=== PATIENT | male | born 1975 | race African-American/Black ===

== ENCOUNTER 2018-05-22 07:14 | Emergency (ER) | payer MEDICAID, SELFPAY ==
[2018-05-22 07:19] VITALS: BP 113/59; PULSE 86; RESP 16; TEMP 37; O2SAT 97
--- NOTE | 2018-05-22 07:26 | W.ED.GENAD ---
Discharge Plan Disposition Patient Disposition: HOME Condition: Good Discharge Details Chief Complaint: RespSymp Clinical Impression: Acute bronchitis Primary Care Provider: NONE,NONE ED Provider: Estrada Valencia Home Meds and New Rx's Prescriptions: New doxycycline hyclate 100 mg capsule 100 mg PO BID 10 Days Qty: 20 RF: 0 Continue naproxen 500 MG tablet 500 mg PO BID Qty: 60 RF: 0 haloperidol lactate 50 MG/10 ML solution 100 mg IM .Q2WKS RF: 0 ziprasidone HCl [Geodon] 40 MG capsule 40 mg PO BID RF: 0 alprazolam 3 MG tablet extended release 24 hr 3 mg PO HS RF: 0 ibuprofen 800 MG tablet 800 mg PO TID PRNQty: 30 RF: 0 Discharge Instructions Instructions: Acute Bronchitis (ED) Additional Instructions: We will contact you with a follow-up appointment for your primary care office. Take antibiotics as prescribed. Continue your regularly prescribed antibiotics. Return to the emergency department for any acute concerns Continue your efforts to decrease smoking Stand Alone Forms: Work Release Medical Decision Making 42-year-old male smoker with a history of paranoid schizophrenia. He recently relocated to this area, and will require follow-up which we will ensure. He has 5 days of productive cough with sputum. He continues to smoke with cigarettes and marijuana he also reports flank pain. His vital signs are unremarkable and his exam is reassuring. Is referred for chest x-ray and urinalysis given the differential diagnosis of bronchitis, pneumonia, must rule out urinary tract infection. His diagnostic studies show unremarkable chest x-ray and unrevealing urinalysis. Do feel he is high risk for progression of what is acute bronchitis given his mental health disease and smoking. Therefore, we will place on a course of antibiotics. He is stable for outpatient management and we will ask that our ancillary staff obtain him a follow-up appointment Lab Data Laboratory Tests Range/Units 05/22/18 07:30 Urine Color (Yellow) Yellow Urine Clarity Clear Urine pH (5-8) 5.5 Ur Specific [place] (1.005-1.025) 1.020 Urine Protein (Negative) mg/dL Negative Urine Ketones (Negative) mg/dL Negative Urine Blood (Negative) Negative Urine Nitrite (Negative) Negative Urine Bilirubin (Negative) Negative Urine Urobilinogen (Up TO 0.2) EU/dL 0.2 Ur Leukocyte Esterase (Negative) Negative Urine Glucose (Negative) mg/dL Negative HPI General Mode of arrival: ambulatory. Date/Time Provider Initiated Documentation: 05/22/18 07:20. Information obtained by: patient. History of Present Illness 42 year old M presents to the emergency department with the chief complaint of Cough, described as moderate, Quality is described as aching, and is localized to the chest. Patient started experiencing this day(s) and it has been constant. No relieving factors improve symptom(s), No exacerbating factors reported . HPI Narrative: Cough: 42-year-old male presents with cough over 5 days time gradual onset. It is associated with production of green sputum. He does not endorse shortness of breath or chest pain. Will endorse flank pain. States he has been drinking cranberry juice and this is improved over 2 days time. No fever. No penile discharge or lesions. He has not been vomiting. Normal diet. He is a smoker approximately 10 cigarettes/day and marijuana Related Data Home Medications Medication Instructions Recorded Confirmed haloperidol lactate 100 mg IM .Q2WKS 12/11/12 05/22/18 alprazolam 3 mg PO HS 02/08/14 05/22/18 ziprasidone HCl [Geodon] 40 mg PO BID 02/08/14 05/22/18 ibuprofen 800 mg PO TID PRN #30 tablet 03/30/15 05/22/18 naproxen 500 mg PO BID #60 tab-cap 04/02/15 05/22/18 doxycycline hyclate 100 mg PO BID 10 Days #20 cap 05/22/18 Previous Rx's Medication Instructions Recorded ibuprofen 800 mg PO TID PRN #30 tablet 03/30/15 doxycycline hyclate 100 mg PO BID 10 Days #20 cap 05/22/18 Allergies Allergy/AdvReac Type Severity Reaction Status Date / Time No Known Allergies Allergy Unverified 05/22/18 07:30 Review of Systems Review of Systems 8 systems reviewed and otherwise negative PFSH Social History Smoking/Tobacco Use Status: Current every day Exam Narrative Exam Narrative: GEN: awake, alert, oriented 3. Pleasant, well groomed, interactive. HEAD: Normocephalic, atraumatic ENT: Mucous membranes moist, oropharynx unremarkable, External ear exam unremarkable EYES: PERRL, EOMI NECK: Full ROM, no FELICITAS, no menigismus CHEST/RESP: Nontender, clear to auscultation bilateral, no wheeze/rhonchi/rales CARDIOVASCULAR: RRR, no murmur, rub krystian. 2+ Rad pulse bilateral ABDOMEN: Soft, nontender, no mass. +Bowel sounds EXT: Full ROM, no edema, no rash Neuro: Grossly normal neurologic exam, conversant, interactive. Psych: Speech fluent, thoughts congruent, affect flat
--- NOTE | 2018-05-22 07:30 | DI.RAD_ITS ---
SYMPTOMS/DIAGNOSIS: COUGH, SMOKER PA AND LATERAL CHEST: The heart is normal in size. The lungs are clear. The mediastinal structures and pleura appear intact. CONCLUSION: Normal chest.
[2018-05-22 07:33] LABS: Bilirubin Negative (Negative); Blood Negative (Negative); Clarity Clear; Glucose Negative (Negative); Ketones Negative (Negative); Leukocyte Esterase Negative (Negative); Nitrite Negative (Negative); Urobilinogen 0.2 EU/dL (Up TO 0.2); pH 5.5 (5-8)
== END 2018-05-22 07:55 | disposition home or self-care (01) ==
PROVIDERS: Emergency Provider Emergency Medicine
DX: J20.9 Acute bronchitis, unspecified (principal); R10.31 Right lower quadrant pain; F17.210 Nicotine dependence, cigarettes, uncomplicated
CPT/HCPCS: 99283; 71046; 81003

== ENCOUNTER 2018-07-02 12:04 | Emergency (ER) | payer OTHER, SELFPAY ==
[2018-07-02 12:12] VITALS: BP 134/84; PULSE 94; RESP 18; TEMP 37.1; O2SAT 98
--- NOTE | 2018-07-02 12:35 | W.ED.GENAD ---
Discharge Plan Disposition Patient Disposition: [facility] Condition: Good Discharge Details Chief Complaint: AMS/LOC Clinical Impression: Medical non-compliance, History of schizophrenia Primary Care Provider: NONE,NONE ED Provider: Jc Bonilla Home Meds and New Rx's Prescriptions: New alprazolam 1 mg tablet 1 mg PO TID 30 Days Qty: 90 RF: 0 benztropine 1 mg tablet 1 mg PO BID 30 Days Qty: 60 RF: 0 No Action naproxen 500 MG tablet 500 mg PO BID Qty: 60 RF: 0 haloperidol lactate 50 MG/10 ML solution 100 mg IM .Q2WKS RF: 0 ziprasidone HCl [Geodon] 40 MG capsule 40 mg PO BID RF: 0 alprazolam 3 MG tablet extended release 24 hr 3 mg PO HS RF: 0 ibuprofen 800 MG tablet 800 mg PO TID PRNQty: 30 RF: 0 Discharge Instructions Additional Instructions: Please take the benztropine and alprazolam as directed. If you notice any worsening of your symptoms, or any new symptoms such as vomiting, diarrhea, fever, chills, shortness of breath, chest pain, numbness, weakness, change in mental status or fainting , please return immediately to the emergency department for reevaluation. Please follow up with your primary care provider as soon as possible for reassessment and reevaluation. As always, it was a pleasure participating in your medical care today. Medical Decision Making This is a 42-year-old -[place] male with a past medical history of schizophrenia who presents today for evaluation of abnormal behavior. He was brought to group home 3 days ago, however because of abnormal behavior at that time a complete medical intake was not done however 3 days later when he demonstrated continued abnormal behaviors his pharmacy was contacted and he was noted to have multiple medications which she has not been taking, including alprazolam, biweekly Haldol, questionable Geodon. He was sent in for further evaluation. Currently he has pressured speech, flight of ideas, notable auditory hallucinations with occasional visual hallucinations. We will perform a workup to evaluate for any organic etiology, consult mental health, and reevaluate. 2:10 PM We did get in contact with the patient's outpatient mental health worker, as well as our on-call mental health worker, we did give the patient is a 12 gross of medications, and the patient is acting very well at this time. Per his normal mental health workers they feel that he is definitely at or near his baseline, maybe slightly more agitated but no other significant abnormalities. On repeat assessment patient states that I have no intent of harming anyone. At his normal baseline now with his home medications I feel he can be safely discharged back to group home. I did contact Amelia the intake medical professional, and discussed the case with her including the need for continued dosing of his home medications and she understands. We discussed red flags which to return. I have extensively reviewed the treatment plan and discharge instructions with the patient and their family. I have addressed all patient concerns at this time. The patient and family was made aware of what symptoms to monitor for that would warrant a return to the emergency department. Discussed the plan with the patient and family, they demonstrate verbal understanding and agreement with our assessment and plan at this time. HPI General Date/Time Provider Initiated Documentation: 07/02/18 12:19. HPI Narrative: This is a 42-year-old -[place] male with past medical history of schizophrenia who presents for evaluation of auditory and visual hallucinations. Patient comes from group home, his medical intake officer at the group home states that he came into the system 3 days ago, off the street. At that time he was acting slightly odd, they are unable to complete intake or get his medication list. However today the patient was continuing to act even more strange, discussing auditory and visual hallucinations. The medical intake officer then contacted his local pharmacy and found out that he was on Haldol 100 mg q. biweekly, alprazolam 1 mg every 8, and questionable Geodon use as well. Out of concern that he may be is withdrawing from his benzodiazepine or was in a psychotic episode they sent him here to the ER for further evaluation. Currently the patient states that he is hearing auditory hallucinations that tell me to kick everyones ass. He also states that he sees things, including little kids. The patient denies any suicidal ideations. He states that he was taking his medications prior to going to group home. However he does appear to be an inconsistent historian. He denies any other complaints at this time. He denies any alcohol or drug or illicit substance use. Related Data Home Medications Medication Instructions Recorded Confirmed haloperidol lactate 100 mg IM .Q2WKS 12/11/12 05/22/18 alprazolam 3 mg PO HS 02/08/14 05/22/18 ziprasidone HCl [Geodon] 40 mg PO BID 02/08/14 05/22/18 ibuprofen 800 mg PO TID PRN #30 tablet 03/30/15 05/22/18 naproxen 500 mg PO BID #60 tab-cap 04/02/15 05/22/18 alprazolam 1 mg PO TID 30 Days #90 tab 07/02/18 benztropine 1 mg PO BID 30 Days #60 tab 07/02/18 Previous Rx's Medication Instructions Recorded ibuprofen 800 mg PO TID PRN #30 tablet 03/30/15 alprazolam 1 mg PO TID 30 Days #90 tab 07/02/18 benztropine 1 mg PO BID 30 Days #60 tab 07/02/18 Allergies Allergy/AdvReac Type Severity Reaction Status Date / Time No Known Allergies Allergy Unverified 07/02/18 12:16 General Stated Complaint: AMS/LOC AMARILIS: 2 Review of Systems Review of Systems All systems reviewed & are unremarkable except as noted in HPI and below Exam Narrative Exam Narrative: 1.Const: Well-nourished, Well-developed, appearing stated age 2.Eyes: PERRL, no conjunctival injection, and symmetrical lids. 3.ENT: Atraumatic external nose and ears. Moist MM. Neck: Symmetric, trachea midline, No thyromegaly. 4.CVS: +S1/S2, No murmurs or gallops. Peripheral pulses 2+ and equal in all extremities. Brisk capillary refill in all extremities. 5.RESP: Unlabored respiratory effort. Clear to auscultation bilaterally. No wheezes rales or rhonchi 6.GI: Soft, Nontender/Nondistended, No hepatosplenomegaly. No guarding or rebound. 7.MSK: Normocephalic/Atraumatic, Extremities w/o deformity or ttp No cyanosis or clubbing, Normal movement of all extremities 8.Skin: Warm, Dry. No rashes or lesions. 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 Sensation grossly intact, no focal neurologic deficits. 10.Psych: Patient demonstrates flight of ideas, pressured speech, he describes auditory hallucinations, he also describes occasional visual hallucinations but states he is not seeing anything extra right now. He does concerningly seem to be in a bit of a psychotic episode Course Vital Signs Temperature 37.1 C 07/02/18 12:12 Pulse 94 H 07/02/18 12:12 Respiratory Rate 18 07/02/18 12:12 Blood Pressure 134/84 07/02/18 12:12 Pulse Oximetry 98 07/02/18 12:12 Temperature 37.1 C 07/02/18 12:12 Temperature Source Skin 07/02/18 12:12 Pulse 94 H 07/02/18 12:12 Respiratory Rate 18 07/02/18 12:12 Blood Pressure 134/84 07/02/18 12:12 Blood Pressure Position Sitting 07/02/18 12:12 Pulse Oximetry 98 07/02/18 12:12 Oxygen Delivery Method Room Air 07/02/18 12:12 Oxygen Flow Rate 0 07/02/18 12:12 Pain Level 0 07/02/18 12:12
[2018-07-02 12:45] LABS: Abs Immature Grans 0.02 k/cumm (0.0-0.09); Absolute Basophil Count 0.01 k/cumm (0.0-0.2); Absolute Eosinophil Count 0.03 k/cumm (0.0-0.7); Absolute Monocyte Count 0.95 k/cumm (0.11-0.7); Absolute Neutrophil Count 8.77 k/cumm (1.2-6.7); Basophils % 0.1; Eosinophils % 0.3; HCT 42.5 % (40.0-50.0); HGB 14.5 g/dL (13.5-17.5); Immature Grans % 0.2; Lymphocytes % 8.4; Mean Corp. HGB Concentration 34.1 g/dL (32.0-36.0); Mean Corpuscular Hemoglobin 29.4 pg (27.0-33.0); Mean Platelet Volume 9.2 fL (8.0-11.0); Monocytes % 8.9; Neutrophils % 82.1; Platelet Count 227 x1000/uL (130-400); RBC 4.94 m/cumm (4.50-6.00); RBC Distribution Width 13.3 % (11.8-14.1); White Blood Cell Count 10.68 k/cumm (4.4-10.8)
[2018-07-02 12:52] LABS: Bilirubin Small (Negative); Blood Negative (Negative); Clarity Clear; Glucose Negative (Negative); Ketones 40 mg/dL (Negative); Leukocyte Esterase Negative (Negative); Nitrite Negative (Negative); Specific Gravity >= 1.030 (1.005-1.025); Urobilinogen 0.2 EU/dL (Up TO 0.2); pH 5.5 (5-8)
[2018-07-02 13:02] LABS: Bacteria Few HPF (Negative); Epithelial Cells Rare HPF (Negative)
[2018-07-02 13:03] LABS: C & S Indicated? Yes; Casts Negative LPF (Negative); Crystals Negative HPF (Negative); Mucus Negative (Negative)
[2018-07-02 13:07] LABS: *AMPHETAMINES SCREEN URINE Negative (Negative); *BARBITURATES SCREEN URINE Negative (Negative); *BENZODIAZEPINES SCREEN URINE Negative (Negative); Cannabinoids THC Negative (Negative); Cocaine Screen,Urine Negative (Negative); METHADONE URINE SCREEN Negative (Negative); OPIATES URINE SCREEN Negative (Negative)
[2018-07-02 13:10] LABS: Tricyclic Antidepressants Negative (Negative)
[2018-07-02 13:15] LABS: ALT 30 U/L (12-78); AST 37 U/L (15-37); Albumin 4.1 g/dL (3.4-5.0); Alkaline Phosphatase 65 U/L (46-116); Anion Gap 11.4 mmol/L (3-11); BUN 17 mg/dL (7-18); Bilirubin, Total 1.3 mg/dL (0.2-1.0); CO2 26.6 mmol/L (21.0-32.0); Calcium 9.4 mg/dL (8.5-10.1); Chloride 101 mmol/L (98-107); Glucose 109 mg/dL (70-100); Potassium 4.2 mmol/L (3.5-5.1); Sodium 139 mmol/L (136-145); TSH 0.91 uIU/mL (0.358-3.74); Total Protein 8.1 g/dL (6.4-8.2)
[2018-07-02 13:17] LABS: ETHANOL BLOOD < 3.0 mg/dL (<3)
[2018-07-02 13:22] LABS: Salicylate 4.8 mg/dL (2.8-20.0)
[2018-07-02 13:26] LABS: Acetaminophen < 2 ug/mL (10-30)
[2018-07-02] MEDS: LORazepam 2 MG/ML VIAL 1 MG IVP (14:03)
[2018-07-02] MEDS: Benztropine 1 MG TAB PO (14:09)
== END 2018-07-02 14:26 | disposition home or self-care (01) ==
PROVIDERS: Emergency Provider Student in an Organized Health Care Education/Training Program
DX: R44.0 Auditory hallucinations (principal); R44.1 Visual hallucinations; T43.4X6A Underdosing of butyrophenone and thiothixene neuroleptics, initial encounter; T42.4X6A Underdosing of benzodiazepines, initial encounter
CPT/HCPCS: 80053; 80307; 96374; 99285; 80320; 80329; 81003; 81015; 84443; 85025; 87086; 99284; J2060

== ENCOUNTER 2019-05-18 01:32 | Outpatient (CLI) | payer OTHER, SELFPAY ==
[2019-05-18] MEDS: Breeza Beverage 473 ML BTL PO ×2 (07:33→07:34)
[2019-05-18] MEDS: Omnipaque 350 MG/ML 50 ML BTL PO (07:33)
[2019-05-18] MEDS: Omnipaque 350 MG/ML 100 ML BTL IJ (09:05)
--- NOTE | 2019-05-18 09:29 | DI.CT_ITS ---
EXAM: CT ABDOMEN PELVIS W CLINICAL HISTORY: ABD CRAMPING,NAUSEA,SOB,COLONIC ILEUS, ? POST OP ADHESIONS OR STRICTURE DUE TO BOW EL RESECTION,FAMILIAL ADENOMATOUS POLYPOSIS TECHNIQUE: CT examination of the abdomen and pelvis was performed with a bolus infusion of 100 cc of Omnipaque 350 and ingestion of dilute barium. COMPARISON: ABD PELVIS WITH CONTRAST from 01/11/2010 FINDINGS: Images obtained through the lung bases are unremarkable. Incidental small presumed hepatic cysts no krish. Otherwise the liver and spleen are normal in appearance. Gallbladder and bile ducts are CT nor mal. Pancreas appears normal. Abdominal aorta is of diameter and no major vascular abnormality is s een. Small fat containing umbilical hernia noted. No other significant abdominal wall hernia seen. Adrenals and kidneys appear normal with an incidental presumed tiny left renal cortical cyst. No ur inary tract calcification or obstruction. Urinary bladder is incompletely distended but may be thick -walled, please correlate clinically regarding possibility of cystitis. Patient has reportedly had colonic resection for familial polyposis. Presumed colonic rectosigmoid r emnant shows mild wall thickening raising the possibility of colitis. No evidence of obstruction. T here are nonspecific prominent mesenteric lymph nodes, no bulky adenopathy seen. IMPRESSION: Question colitis in colonic remnant in a patient who has apparently had subtotal colectomy. Question also raised of urinary bladder wall thickening which could be associated with cystitis.
== END 2019-05-18 01:52 ==
PROVIDERS: Visit Provider Nurse Practitioner Adult Health
DX: R10.9 Unspecified abdominal pain (principal); R11.0 Nausea; R06.02 Shortness of breath; K56.7 Ileus, unspecified; K42.9 Umbilical hernia without obstruction or gangrene; N32.9 Bladder disorder, unspecified; Z90.49 Acquired absence of other specified parts of digestive tract
CPT/HCPCS: 74177; J3490; Q9967

== ENCOUNTER 2020-12-16 09:58 | Emergency (ER) | payer MEDICAID, SELFPAY ==
[2020-12-16 10:02] VITALS: BP 129/96; PULSE 105; RESP 16; TEMP 36; O2SAT 97
[2020-12-16 10:43] VITALS: RESP 16
--- NOTE | 2020-12-16 10:45 | RT.EKG_ITS ---
APPROVED REPORT Exam: Resting ECG Patient Location: E HR:84 bpm ECG Measurements Heart Rate 84 AXIS CA 141 P 48 QRSd 91 QRS 48 QT 341 T 24 QTc 403 Conclusion Sinus rhythm...normal P axis, V-rate 60- 99 ST elev, probable normal early repol pattern...ST elevation, age<55
--- NOTE | 2020-12-16 10:48 | ED.GENADUL_ITS ---
Discharge Plan Disposition Patient Disposition: HOME Condition: Good Discharge Details Clinical Impression: Schizophrenia Primary Care Provider: None,None ED Provider: Brisa Landrum Home Meds and New Rx's Prescriptions: No Action naproxen 500 MG tablet 500 mg PO BID Qty: 60 RF: 0 ziprasidone HCl [Geodon] 40 MG capsule 40 mg PO BID RF: 0 alprazolam 3 MG tablet extended release 24 hr 3 mg PO HS RF: 0 ibuprofen 800 MG tablet 800 mg PO TID PRNQty: 30 RF: 0 clonazepam 1 mg tablet 1 mg PO BID RF: 0 benztropine 1 mg tablet 1 mg PO BID RF: 0 haloperidol decanoate [Haldol Decanoate] 100 mg/mL Solution 100 mg IM Q2W RF: 0 Discharge Instructions Additional Instructions: Please follow-up with your scheduled appointment with your psychologist/counselor at your appointment on Tuesday Please establish care with a primary care physician Please return should any concerns arise Medical Decision Making Case discussed with counselor Haydee from patient prior placement to discharge patient on November 20 confirmed that patient had his last dose of Haldol in the third week of October, patient reportedly has established appointment on Tuesday for mental health reevaluation He was given 100 mg of IM extended release Haldol and was calm and cooperative throughout the entirety of this visit, patient is experiencing auditory hallucinations, however he states that this is his baseline and not worsening. He denies any suicidal or homicidal ideation He reports he is attempting to establish care with primary care physician and submitted paperwork He denies any additional complaints at this time He has been taking oral medication as prescribed and have sufficient supply Case discussed with [facility] and patient will have care management follow-up Patient given low threshold to return with new or worsening complaints Differential Diagnosis Differential Diagnosis: Mood disorder, suicidal ideation, homicidal ideation, schizophrenia Medical Records Medical records reviewed: Yes I reviewed the patient's medical records. Lab Data Lab results reviewed: Yes I reviewed the patient's lab results. HPI General Mode of arrival: ambulatory . Date/Time Provider Initiated Documentation: 12/16/20 10:01 . Limitations to Documentation: no limitations . Information obtained by: patient . HPI Narrative: This 45-year-old gentleman with past medical history of schizophrenia presents with report of having command hallucinations which she is ignore. He denies any suicidal or homicidal ideation. He states that he has missed 1 month of treatment. He states that he is scheduled to see a new provider on Tuesday but he is unable to wait until that appointment as he feels as though his hallucinations are worsening. He denies feeling at risk for harming himself or others. He denies any chest pain or shortness of breath. He denies any dizziness or weakness. He has no other complaints at this time. He states he is taking his Geodon and alprazolam on a regular basis. Related Data Home Medications Medication Instructions Recorded Confirmed alprazolam 3 mg PO HS 02/08/14 12/16/20 ziprasidone HCl [Geodon] 40 mg PO BID 02/08/14 12/16/20 ibuprofen 800 mg PO TID PRN #30 tablet 03/30/15 12/16/20 naproxen 500 mg PO BID #60 tab-cap 04/02/15 12/16/20 benztropine 1 mg PO BID 12/16/20 12/16/20 clonazepam 1 mg PO BID 12/16/20 12/16/20 haloperidol decanoate [Haldol 100 mg IM Q2W 12/16/20 12/16/20 Decanoate] Previous Rx's Medication Instructions Recorded ibuprofen 800 mg PO TID PRN #30 tablet 03/30/15 Allergies Allergy/AdvReac Type Severity Reaction Status Date / Time No Known Allergies Allergy Unverified 12/16/20 10:08 General Stated Complaint: GenMedical AMARILIS: 4 Review of Systems Narrative: Review of systems obtained x7 aside from where indicated in HPI [facility] Social History Smoking/Tobacco Use Status: Current every day Tobacco Type: cigarettes Smoking risk assessment performed?: Yes Alcohol Intake: never Drug use: Occasionally Substance use type: marijuana Exam Const General: cooperative and no acute distress HENMT Head: normal to inspection Eyes Pupils: PERRL Resp Effort & Inspection: normal respiratory effort Cardio Rate: regular rate Skin General skin exam: no rashes or lesions noted Neuro General: patient alert and patient oriented x3 Cranial Nerves: CN's II-XI intact bilaterally Cognition: normal cognition Speech: speech normal Gait: normal gait Psych Appearance: well kempt Mental Status: mental status grossly normal Speech and Movement: speech and movement normal Affect: normal affect Thought Process: normal Thought Content: normal, no delusions, hallucinations and suicidality Insight: insight good Course Vital Signs Vital signs: Vital Signs Temperature 36 C L 12/16/20 10:02 Pulse 105 H 12/16/20 10:02 Respiratory Rate 16 12/16/20 10:02 Blood Pressure 129/96 H 12/16/20 10:02 Pulse Oximetry 97 12/16/20 10:02 Temperature 36 C L 12/16/20 10:02 Temperature Source Skin 12/16/20 10:02 Pulse 105 H 12/16/20 10:02 Respiratory Rate 16 12/16/20 10:43 Respiratory Effort Non-Labored 12/16/20 10:43 Respiratory Depth Normal 12/16/20 10:43 Respiratory Pattern Normal 12/16/20 10:43 Blood Pressure 129/96 H 12/16/20 10:02 Blood Pressure Position Sitting 12/16/20 10:02 Pulse Oximetry 97 12/16/20 10:02 Oxygen Delivery Method Room Air 12/16/20 10:02 Oxygen Flow Rate 0 12/16/20 10:02 Pain Level 0 12/16/20 10:02
[2020-12-16] MEDS: HALOPERIDOL DECANOATE 100 MG/1 ML IM (11:31)
== END 2020-12-16 11:36 | disposition home or self-care (01) ==
PROVIDERS: Emergency Provider Physician Assistant
DX: R44.0 Auditory hallucinations (principal); F20.9 Schizophrenia, unspecified
CPT/HCPCS: 93005; 96372; 99284; 93010

== ENCOUNTER 2021-01-09 03:16 | Outpatient (CLI) | payer MEDICAID, SELFPAY ==
[2021-01-09 13:19] LABS: Abs Immature Grans 0.03 10^3/uL (0.0-0.06); Absolute Basophil Count 0.01 10^3/uL (0.0-0.2); Absolute Eosinophil Count 0.17 10^3/uL (0.0-0.7); Absolute Lymphocyte Count 1.48 10^3/uL (1.2-3.4); Absolute Monocyte Count 0.55 10^3/uL (0.1-0.8); Absolute Neutrophil Count 4.96 10^3/uL (1.2-6.7); Basophils % 0.1; Eosinophils % 2.4; HCT 43.3 % (40.0-50.0); HGB 14.3 g/dL (13.5-17.5); Immature Grans % 0.4; Lymphocytes % 20.6; MCV 84.9 fL (80-95); MPV 9.1 fL (8.0-11.0); Monocytes % 7.6; Neutrophils % 68.9; Nucleated RBC 0 %; Platelet Count 243 10^3/uL (130-400); RDW 13.3 % (11.8-14.1); RDW-SD 41.6 fL
[2021-01-09 14:01] LABS: Hemoglobin A1C 5.9 % (<5.7)
[2021-01-09 14:40] LABS: ALT 25 U/L (16-63); AST 17 U/L (15-37); Albumin 3.6 g/dL (3.4-5.0); Alkaline Phosphatase 65 U/L (46-116); BUN 11 mg/dL (7-18); Bilirubin, Total 0.5 mg/dL (0.2-1.0); CREATININE 1.2 mg/dL (0.70-1.30); Calcium 8.8 mg/dL (8.5-10.1); Calculated LDL 90 mg/dL (<100); Chloride 106 mmol/L (98-107); Cholesterol 150 mg/dL (<200); Glucose 104 mg/dL (74-106); HDL Cholesterol 42 mg/dL (40-60); Magnesium 1.9 mg/dL (1.8-2.4); Potassium 3.6 mmol/L (3.5-5.1); Sodium 145 mmol/L (136-145); TSH 0.34 uIU/mL (0.36-3.74); Total Protein 6.8 g/dL (6.4-8.2); Triglyceride 92 mg/dL (<150); Vitamin B12 272 pg/mL (193-986)
[2021-01-09 15:04] LABS: C-Reactive Protein 0.71 mg/dL (0.0-0.3); FREE T4 1.33 ng/dL (0.76-1.46)
[2021-01-10 22:34] LABS: T3, Total 180 ng/dL (97-169)
[2021-01-12 05:04] LABS: Vitamin D 25 Total 10.3 ng/mL (30-100)
== END 2021-01-09 03:17 | disposition home or self-care (01) ==
LOC: LBO 03:16
PROVIDERS: PCP Physician Assistant; Visit Provider Psychiatry & Neurology Psychiatry
DX: F20.9 Schizophrenia, unspecified (principal); Z79.899 Other long term (current) drug therapy
CPT/HCPCS: 36415; 80053; 80061; 82306; 82607; 83036; 83735; 84439; 84443; 84480; 85025; 86140

== ENCOUNTER 2021-02-13 11:07 | Outpatient (REF) | payer MEDICAID, SELFPAY ==
[2021-02-13 11:18] LABS: *AMPHETAMINES SCREEN URINE Negative (Negative); *BARBITURATES SCREEN URINE Negative (Negative); *BENZODIAZEPINES SCREEN URINE Negative (Negative); Cannabinoids THC Positive (Negative); Cocaine Screen,Urine Negative (Negative); METHADONE URINE SCREEN Negative (Negative); OPIATES URINE SCREEN Negative (Negative)
[2021-02-13 11:19] LABS: Tricyclic Antidepressants Negative (Negative)
== END 2021-02-13 11:08 | disposition home or self-care (01) ==
LOC: LBN 11:07
PROVIDERS: PCP Physician Assistant; Visit Provider Psychiatry & Neurology Psychiatry
DX: F15.20 Other stimulant dependence, uncomplicated (principal)
CPT/HCPCS: 80307

== ENCOUNTER 2021-06-04 04:33 | Emergency (ER) | payer MEDICAID, SELFPAY ==
[2021-06-04 04:35] VITALS: BP 124/84; PULSE 84; RESP 20; TEMP 36.4; O2SAT 97
--- NOTE | 2021-06-04 04:45 | RT.EKG_ITS ---
APPROVED REPORT Exam: Resting ECG Reason for Exam: difficulty breathing Patient Location: E HR:67 bpm ECG Measurements Heart Rate 67 AXIS WI 136 P 10 QRSd 92 QRS -23 QT 362 T 32 QTc 381 Conclusion Sinus rhythm...normal P axis, V-rate 60- 99 ST elev, probable normal early repol pattern...ST elevation, age<55 Physician: no stemi, mild ear;y repol. unchanged from prior ekg on 12/16/20
--- NOTE | 2021-06-04 04:54 | ED.GENADUL_ITS ---
Discharge Plan Disposition Patient Disposition: HOME Condition: Good Discharge Details Clinical Impression: Bronchitis Primary Care Provider: Marcus Santana ED Provider: Jc Bonilla Home Meds and New Rx's Prescriptions: New doxycycline hyclate 100 mg capsule 100 mg PO BID 7 Days Qty: 14 RF: 0 Continued naproxen 500 MG tablet 500 mg PO BID Qty: 60 RF: 0 ziprasidone HCl [Geodon] 40 MG capsule 40 mg PO BID RF: 0 alprazolam 3 MG tablet extended release 24 hr 3 mg PO HS RF: 0 ibuprofen 800 MG tablet 800 mg PO TID PRNQty: 30 RF: 0 clonazepam 1 mg tablet 1 mg PO BID RF: 0 benztropine 1 mg tablet 1 mg PO BID RF: 0 haloperidol decanoate [Haldol Decanoate] 100 mg/mL Solution 100 mg IM Q2W RF: 0 Discharge Instructions Instructions: Acute Bronchitis (ED) Additional Instructions: At this time your ultrasound shows evidence of mild bronchitis and early pneumonia. Please take the antibiotic doxycycline as directed. It has been sent to your pharmacy on file. Make sure to take it with food otherwise it can cause an upset stomach. Avoid dairy product taking the medication. Please take the inhaler albuterol, 2 puffs every 4 hours as needed for shortness of breath. We have contacted our insurance case manager and they will contact you in the coming week to help you in acquiring a new CPAP machine. If you notice any worsening of your symptoms, or any new symptoms such as vomiting, diarrhea, fever, chills, shortness of breath, chest pain, numbness, weakness, or fainting , please return immediately to the emergency department for reevaluation. Please follow up with your primary care provider as soon as possible for reassessment and reevaluation. As always, it was a pleasure participating in your medical care today. Referrals: Marcus Santana [Primary Care Provider] - Medical Decision Making This is a 45-year-old -[place] male with a past medical history of schizophrenia, chronic tobacco abuse, who presents today for evaluation of mild cough and shortness of breath. Patient states that he is vaccinated against Covid, about a week ago he had a runny nose cough and congestion, the upper respiratory runny nose symptoms have improved, however he has subsequently developed continued cough with mild productive sputum. He denies any fever or chills. He does admit to mild tightness with the cough. He denies any chest pain. Denies PE risk factors such as recent long car rides, immobilization, recent surgery, prior history of DVT or PE, family history of PE or DVT, morbid obesity, exogenous estrogen , hemoptysis, history of cancer. He denies any history of cardiac disease, or family history of cardiac disease. He denies any arm, neck, shoulder pain. He denies any bandlike sensation around the chest. No other complaints at this time. Of note the patient did have a CPAP at home, which unfortunately broke a few weeks ago. He has been unable to get a new one. He does not use inhalers at home. He does admit to only intermittently taking his mental health medications. Physical exam demonstrates minimal crackles in the right lower lung field, bedside ultrasound Shows a small area of B-lines in very minimal consolidation. Suspect bronchitis versus early pneumonia with the patient's continued cough and sputum productivity. Screening EKG performed, no acute changes, no evidence of STEMI. Covid test will be performed, the patient will be contacted with his results return. Will give doxycycline for home use as I would be concerned that azithromycin would interact with his other antipsychotic medications. Will give inhaler for home use, and refer to case management in an effort to help him procure a new CPAP machine. Discussed red flags which return. I have extensively reviewed the treatment plan and discharge instructions with the patient. I have addressed all patient concerns at this time. The patient was made aware of what symptoms to monitor for that would warrant a return to the emergency department. Discussed the plan with the patient, they demonstrate verbal understanding and agreement with our assessment and plan at this time. The documentation in this chart was dictated using [employer] dictation software. Please excuse any dictation errors. HPI General Date/Time Provider Initiated Documentation: 06/04/21 04:39 . HPI Narrative: This is a 45-year-old -J[place] male with a past medical history of schizophrenia, chronic tobacco abuse, who presents today for evaluation of mild cough and shortness of breath. Patient states that he is vaccinated against Covid, about a week ago he had a runny nose cough and congestion, the upper respiratory runny nose symptoms have improved, however he has subsequently dev eloped continued cough with mild productive sputum. He denies any fever or chills. He does admit to mild tightness with the cough. He denies any chest pain. Denies PE risk factors such as recent long car rides, immobilization, recent surgery, prior history of DVT or PE, family history of PE or DVT, morbid obesity, exogenous estrogen , hemoptysis, history of cancer. He denies any history of cardiac disease, or family history of cardiac disease. He denies any arm, neck, shoulder pain. He denies any bandlike sensation around the chest. No other complaints at this time. Of note the patient did have a CPAP at home, which unfortunately broke a few weeks ago. He has been unable to get a new one. He does not use inhalers at home. He does admit to only intermittently taking his mental health medications. Related Data Home Medications Medication Instructions Recorded Confirmed alprazolam 3 mg PO HS 02/08/14 06/04/21 ziprasidone HCl [Geodon] 40 mg PO BID 02/08/14 06/04/21 ibuprofen 800 mg PO TID PRN #30 tablet 03/30/15 06/04/21 naproxen 500 mg PO BID #60 tab-cap 04/02/15 06/04/21 benztropine 1 mg PO BID 12/16/20 06/04/21 clonazepam 1 mg PO BID 12/16/20 06/04/21 haloperidol decanoate [Haldol 100 mg IM Q2W 12/16/20 06/04/21 Decanoate] doxycycline hyclate 100 mg PO BID 7 Days #14 cap 06/04/21 Previous Rx's Medication Instructions Recorded ibuprofen 800 mg PO TID PRN #30 tablet 03/30/15 doxycycline hyclate 100 mg PO BID 7 Days #14 cap 06/04/21 Allergies Allergy/AdvReac Type Severity Reaction Status Date / Time No Known Allergies Allergy Unverified 06/04/21 04:40 General Stated Complaint: RespSymp AMARILIS: 3 Review of Systems All systems reviewed & are unremarkable except as noted in HPI and below PFSH Social History Smoking/Tobacco Use Status: Current every day Tobacco Type: cigarettes Smoking risk assessment performed?: Yes Alcohol Intake: never Drug use: Occasionally Substance use type: marijuana Do you feel safe at home: Yes Do you feel safe in your relationship?: Yes Exam Narrative Exam Narrative: 1.Const: Well-nourished, Well-developed, appearing stated age 2.Eyes: PERRL, no conjunctival injection, and symmetrical lids. 3.ENT: Atraumatic external nose and ears. Moist MM. Neck: Symmetric, trachea mi dline, No thyromegaly. 4.CVS: +S1/S2, No murmurs or gallops. Peripheral pulses 2+ and equal in all extremities. Brisk capillary refill in all extremities. 5.RESP: Unlabored respiratory effort. Clear to auscultation bilaterally except for minimal crackle in the right lower lung field. No rhonchi or wheeze. 6.GI: Soft, Nontender/Nondistended, No hepatosplenomegaly. No guarding or rebound. 7.MSK: Normocephalic/Atraumatic, Extremities w/o deformity or ttp No cyanosis or clubbing, Normal movement of all extremities, no calf tenderness or swelling in lower extremities 8.Skin: Warm, Dry. No rashes or lesions. 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 Sensation grossly intact, no focal neurologic deficits. 10.Psych: (AAO) x3. Appropriate mood and affect Course Vital Signs Vital signs: Vital Signs Temperature 36.4 C L 06/04/21 04:35 Pulse 84 06/04/21 04:35 Respiratory Rate 20 06/04/21 04:35 Blood Pressure 124/84 06/04/21 04:35 Pulse Oximetry 97 06/04/21 04:35 Temperature 36.4 C L 06/04/21 04:35 Temperature Source Temporal Artery Scan 06/04/21 04:35 Pulse 84 06/04/21 04:35 Respiratory Rate 20 06/04/21 04:35 Respiratory Effort Non-Labored 06/04/21 04:41 Respiratory Depth Normal 06/04/21 04:41 Blood Pressure 124/84 06/04/21 04:35 Blood Pressure Position Sitting 06/04/21 04:35 Pulse Oximetry 97 06/04/21 04:35 Oxygen Delivery Method Room Air 06/04/21 04:35 Oxygen Flow Rate 0 06/04/21 04:35 Pain Level 0 06/04/21 04:35
[2021-06-04 05:03] LABS: Source Nasal/Nares
--- NOTE | 2021-06-04 05:04 | NUR.NOTE ---
Referral to Care Management to help patient get a new c-pap machine as his broke.Nursing Note:
[2021-06-04] MEDS: Albuterol HFA 8 GM 60 PUFF INH IH (05:08)
[2021-06-04] MEDS: Inhaler, Assist Device 1 EACH MC (05:09)
[2021-06-04 05:54] LABS: COVID-19 PCR Negative (Negative)
== END 2021-06-04 05:15 | disposition home or self-care (01) ==
LOC: ER 04:59
PROVIDERS: Emergency Provider Student in an Organized Health Care Education/Training Program; PCP Physician Assistant
DX: J20.9 Acute bronchitis, unspecified (principal); F17.210 Nicotine dependence, cigarettes, uncomplicated; R06.02 Shortness of breath
CPT/HCPCS: 87635; 93005; 99283; 93010

== ENCOUNTER 2021-06-18 18:55 | Emergency (ER) | payer MEDICAID, SELFPAY ==
[2021-06-18 19:02] VITALS: BP 158/73; PULSE 104; RESP 18; TEMP 36.7; O2SAT 98
--- NOTE | 2021-06-18 19:30 | DI.RAD_ITS ---
Exam(s) XR RIBS RT W PA LAT CHEST EXAM: XR RIBS RT W PA LAT CHEST CLINICAL HISTORY: R/O Rib Fracture, Fall, right anterior rib pain TECHNIQUE: COMPARISON: CR XR CHEST 2V PA LATERAL from 05/22/2018 FINDINGS: Heart is not enlarged. Lungs are clear and well expanded. No pleural effusion. There are minimal s mooth anterior rib deformities of the right 7th and 8th ribs probably representing old injuries. No acute rib fracture seen. IMPRESSION: No evidence of acute process. RADIATION DOSE DELIVERED: Total DLP
--- NOTE | 2021-06-18 19:37 | W.ED.GENAD ---
Discharge Plan Disposition Patient Disposition: HOME Condition: Stable Discharge Details Clinical Impression: Contusion of right chest wall Primary Care Provider: Marcus Santana ED Provider: Surekha Patel Home Meds and New Rx's Prescriptions: Continued ziprasidone HCl [Geodon] 40 MG capsule 40 mg PO BID RF: 0 haloperidol decanoate [Haldol Decanoate] 100 mg/mL Solution 100 mg IM Q2W RF: 0 No Action naproxen 500 MG tablet 500 mg PO BID Qty: 60 RF: 0 alprazolam 3 MG tablet extended release 24 hr 3 mg PO HS RF: 0 ibuprofen 800 MG tablet 800 mg PO TID PRNQty: 30 RF: 0 clonazepam 1 mg tablet 1 mg PO BID RF: 0 benztropine 1 mg tablet 1 mg PO BID RF: 0 Discharge Instructions Instructions: Contusion in Adults (ED) Additional Instructions: X-rays today show no evidence for rib fracture or underlying lung abnormality. Rest ice compression elevation use the lidocaine patch as needed for pain. Return to the ER for any worsening shortness of breath, abdominal pain, vomiting or any concerns. Please take Tylenol or Ibuprofen with food every 4-6 hours as needed for pain and swelling. Referrals: Marcus Santana [Primary Care Provider] - 5 days Discharge Data Discharge Date/Time-TO BE ENTERED AT DEPARTURE: 06/18/21 20:50 Medical Decision Making 45-year-old male presents to the ER via EMS with chief complaint of right anterior chest wall tenderness status post fall into a table approximately an hour prior to arrival. Patient reports that he took 650 mg Tylenol prior to arrival. He reports some shortness of breath. He denies any loss of consciousness or any other injuries at this time. He reports that he was recently diagnosed with bronchitis. He is a smoker denies any drugs or alcohol. He has a past medical history of schizophrenia, bronchitis, benzodiazepine overdose. Chest x-ray rib series shows no acute bony abnormality no pulmonary abnormality. Patient given lidocaine patch instructed on strict return instructions and home care. Discharge from department. Instructed on alternating Tylenol ibuprofen and RICE procedures. Follow-up with PCP in 3 to 5 days. This text was generated using [employer] system, please disregard any oddities of phrase or misspellings. HPI General Mode of arrival: ambulatory. Date/Time Provider Initiated Documentation: 06/18/21 19:32. Limitations to Documentation: no limitations. Information obtained by: patient and RN notes reviewed. HPI Narrative: 45-year-old male presents to the ER via EMS with chief complaint of right anterior chest wall tenderness status post fall into a table approximately an hour prior to arrival. Patient reports that he took 650 mg Tylenol prior to arrival. He reports some shortness of breath. He denies any loss of consciousness or any other injuries at this time. He reports that he was recently diagnosed with bronchitis. He is a smoker denies any drugs or alcohol. He has a past medical history of schizophrenia, bronchitis, benzodiazepine overdose. Related Data Home Medications Medication Instructions Recorded Confirmed alprazolam 3 mg PO HS 02/08/14 06/04/21 ziprasidone HCl [Geodon] 40 mg PO BID 02/08/14 06/04/21 ibuprofen 800 mg PO TID PRN #30 tablet 03/30/15 06/04/21 naproxen 500 mg PO BID #60 tab-cap 04/02/15 06/04/21 benztropine 1 mg PO BID 12/16/20 06/04/21 clonazepam 1 mg PO BID 12/16/20 06/04/21 haloperidol decanoate [Haldol 100 mg IM Q2W 12/16/20 06/04/21 Decanoate] Previous Rx's Medication Instructions Recorded ibuprofen 800 mg PO TID PRN #30 tablet 03/30/15 Allergies Allergy/AdvReac Type Severity Reaction Status Date / Time No Known Allergies Allergy Unverified 06/04/21 04:40 General Stated Complaint: Chest/Rib AMARILIS: 4 Review of Systems All systems reviewed & are unremarkable except as noted in HPI and below Cardiovascular Cardiovascular: Reports as per HPI and Reports chest pain (Right anterior chest wall pain, s/p fall) Respiratory Respiratory: Denies hemoptysis and Reports pain on inspiration [facility] Social History Smoking/Tobacco Use Status: Current every day Tobacco Type: cigarettes Smoking risk assessment performed?: Yes Alcohol Intake: never Drug use: Occasionally Substance use type: marijuana Do you feel safe at home: Yes Do you feel safe in your relationship?: Yes Exam Narrative Exam Narrative: General: Well Developed, Awake and Alert, conversant. Skin: Warm and Dry HEENT: Head: No palpable deformities, Normocephalic Eyes: Pupils PERRLA, EOM's intact. No periorbital eccymosis or step off Ears: Canal patent. Tympanic membranes are clear . No parr's sign, no hemptympanum. Nose/Face: Atraumatic. Facial bones nontender to palpation and stable with manipulation. Mouth/Throat: No intraoral trauma. Teeth and mandible are intact. Neck: No midline tenderness, no step off, no deformity to palpation of C-spine. Trachea midline. Chest: No surface trauma. Nontender without crepitus or deformity. Lungs clear to ausculatation bilaterally. Heart: RRR, no rubs, murmurs or gallop. Abdomen: No abrasions, ecchymosis, or surface trauma. Nondistended. Nontender to palpation no guarding, rebound, or rigidity. Pelvis: Nontender to palpation and stable to compression. Femoral pulses strong and equal Extremities: no surface trauma. Sensation intact. Peripheral pulses intact and equal. Neuro: ANO x4, GCS 15, cranial nerves II through XII intact. Motor and sensory exam nonfocal. Reflexes are symmetric. Course Vital Signs Vital signs: Vital Signs Temperature 36.7 C 06/18/21 19:02 Pulse 104 H 06/18/21 19:02 Respiratory Rate 18 06/18/21 19:02 Blood Pressure 158/73 H 06/18/21 19:02 Pulse Oximetry 98 06/18/21 19:02 Temperature 36.7 C 06/18/21 19:02 Temperature Source Temporal Artery Scan 06/18/21 19:02 Pulse 104 H 06/18/21 19:02 Respiratory Rate 18 06/18/21 19:02 Respiratory Effort 06/18/21 19:04 Respiratory Pattern Normal 06/18/21 19:04 Blood Pressure 158/73 H 06/18/21 19:02 Blood Pressure Position Sitting 06/18/21 19:02 Pulse Oximetry 98 06/18/21 19:02 Oxygen Delivery Method Room Air 06/18/21 19:02 Oxygen Flow Rate 0 06/18/21 19:02 Pain Level 8 06/18/21 19:02
--- NOTE | 2021-06-18 20:39 | DI.VRAD_ITS ---
PROCEDURE INFORMATION: Exam: XR Right Ribs Exam date and time: 06/18/2021 7:53 PM Age: 45 years old Clinical indication: Injury or trauma; Fall; Blunt trauma (contusions or hematomas); Rib area TECHNIQUE: Imaging protocol: XR Right ribs. Views: 2 views. COMPARISON: CR XR CHEST 2V PA LATERAL 05/22/2018 7:38 AM FINDINGS: Bones/joints: There are no fractures or focal bony lesions in the right ribs. No specific intercostal widening observed. No lytic or destructive lesions appreciated. Soft tissues: No abnormalities. IMPRESSION: No evidence of right rib fracture. PROCEDURE INFORMATION: Exam: XR Chest Exam date and time: 06/18/2021 7:53 PM Age: 45 years old Clinical indication: Injury or trauma; Fall; Blunt trauma (contusions or hematomas); Rib area TECHNIQUE: Imaging protocol: XR of the chest. Views: 2 views. COMPARISON: CR XR CHEST 2V PA LATERAL 05/22/2018 7:38 AM FINDINGS: Lungs: Lungs are clear and well expanded. No consolidation. No pulmonary vascular congestion. Pleural spaces: Unremarkable. No pleural effusion. No pneumothorax. Heart/Mediastinum: Normal heart size. Normal mediastinal contours. Bones/joints: Moderate degenerative changes in the cervical spine. Soft tissues: Negative for chest wall emphysema. IMPRESSION: No acute cardiopulmonary abnormality. Dictated and Authenticated by: Young Iyer MD. Ordering:MARIO Irby MD
== END 2021-06-18 20:50 | disposition home or self-care (01) ==
PROVIDERS: Emergency Provider Registered Nurse Emergency; PCP Physician Assistant
DX: S20.211A Contusion of right front wall of thorax, initial encounter (principal); W18.39XA Other fall on same level, initial encounter
CPT/HCPCS: 99283; 71046; 71100

== ENCOUNTER 2021-11-15 09:14 | Emergency (ER) | payer MEDICAID, SELFPAY ==
[2021-11-15 09:18] VITALS: BP 148/113; PULSE 101; RESP 16; TEMP 36.6; O2SAT 98
[2021-11-15] MEDS: hydrOXYzine HCL 25 MG TAB PO (09:46)
[2021-11-15] MEDS: ALPRAZolam 0.5 MG TAB PO (10:04)
[2021-11-15] MEDS: HALOPERIDOL DECANOATE 100 MG/1 ML IM (10:04)
[2021-11-15] MEDS: Gabapentin 100 MG CAP PO (10:04)
--- NOTE | 2021-11-15 10:23 | ED.GENADUL_ITS ---
Discharge Plan Disposition Patient Disposition: HOME Condition: Improving Discharge Details Clinical Impression: Encounter for medication refill, Schizophrenia Primary Care Provider: Marcus Santana ED Provider: Catarino Blount Home Meds and New Rx's Prescriptions: New olanzapine 5 mg tablet 5 mg PO QHS Qty: 2 0RF gabapentin 100 mg capsule 100 mg PO TID Qty: 6 0RF prazosin 1 mg capsule 1 mg PO QHS Qty: 2 0RF hydroxyzine HCl 25 mg tablet 25 mg PO TID PRN (Reason: anxiety) Qty: 6 0RF Continued haloperidol decanoate [Haldol Decanoate] 100 mg/mL Solution 100 mg IM Q2W 0RF Discontinued naproxen 500 MG tablet 500 mg PO BID Qty: 60 0RF ziprasidone HCl [Geodon] 40 MG capsule 40 mg PO BID 0RF alprazolam 3 MG tablet extended release 24 hr 3 mg PO HS 0RF ibuprofen 800 MG tablet 800 mg PO TID PRNQty: 30 0RF clonazepam 1 mg tablet 1 mg PO BID 0RF benztropine 1 mg tablet 1 mg PO BID 0RF Label Comments: TAKE ONE TABLET BY MOUTH TWICE A DAY Discharge Instructions Additional Instructions: Please discuss with your primary care provider and your psychiatric medication provider about refills of your medications. From what we could verify from the pharmacy database I have gotten you 2 days worth of medications given that you are stating that you have a appointment tomorrow. If you have any new or significant worsening of symptoms please return to emergency department for reassessment and further evaluation as needed. Stand Alone Forms: Work Release Referrals: Marcus Santana [Primary Care Provider] - 1 day (As previously scheduled) Medical Decision Making Patient presenting to the emergency department for request of medication refill. Patient has a known history of schizophrenia and he states that he has been situationally sad due to loss of friend recently but denies any homicidal or suicidal ideations. Patient states that he otherwise feels at baseline but has not taken his meds in approximately 2 months. Physical exam shows a tearful anxious patient that appears somewhat withdrawn but otherwise unremarkable exam. I was able to verify using the pharmacy database the patient refilled his meds approximately 2 months ago and has been without meds for at least 30 days. Due to this patient was given his daily gabapentin and hydroxyzine along with 1 Xanax for anxiety and then also given his long-acting Haldol IM injection. Did contact [facility] which stated they are well familiar with the patient and that they would arrange close follow-up with patient. Patient also states that he has an appointment tomorrow morning with primary care provider and will discuss further medication refills. Will give patient limited supply of remaining of daily medications and nightly meds. Patient observed for approximately 1 hour after medications and states improvement of symptoms and requesting discharge. Given that patient is otherwise stable and not describing any homicidal suicidal ideations and appears appropriate for baseline and situation I feel this is a reasonable plan of care. After discussion of diagnosis and plan of care patient has no further needs, questions, or concerns and states clear understanding to return to the emergency department for any worsening symptoms. HPI General Date/Time Provider Initiated Documentation: 11/15/21 09:15 . Related Data Home Medications Medication Instructions Recorded Confirmed haloperidol decanoate 100 mg/mL 100 mg IM Q2W 12/16/20 11/15/21 intramuscular solution (Haldol Decanoate) gabapentin 100 mg capsule 100 mg PO TID #6 cap 11/15/21 hydroxyzine HCl 25 mg tablet 25 mg PO TID PRN #6 tab 11/15/21 olanzapine 5 mg tablet 5 mg PO QHS #2 tab 11/15/21 prazosin 1 mg capsule 1 mg PO QHS #2 cap 11/15/21 Previous Rx's Medication Instructions Recorded gabapentin 100 mg capsule 100 mg PO TID #6 cap 11/15/21 hydroxyzine HCl 25 mg tablet 25 mg PO TID PRN #6 tab 11/15/21 olanzapine 5 mg tablet 5 mg PO QHS #2 tab 11/15/21 prazosin 1 mg capsule 1 mg PO QHS #2 cap 11/15/21 Allergies Allergy/AdvReac Type Severity Reaction Status Date / Time No Known Allergies Allergy Unverified 11/15/21 09:23 General Stated Complaint: PsychEval AMARILIS: 2 PFSH All Active Problems (Updated 11/15/21 @ 10:27 by Catarino Blount NP) Schizophrenia (Chronic) Benzodiazepine overdose (Acute) a. Admitted to taking a few extra of his Clonazepam or extended release Alprazolam. Denies any intent. Bronchitis (Acute) Contusion of right chest wall (Acute) Encounter for medication refill (Acute) Social History (Reviewed 06/04/21 @ 05:04 by ERNESTO Pedersen Smoking/Tobacco Use Status: Current every day Tobacco Type: cigarettes Smoking risk assessment performed?: Yes Alcohol Intake: current Alcohol Intake frequency: a few times a month Drug use: Daily Substance use type: marijuana Do you feel safe at home: Yes Do you feel safe in your relationship?: Yes Course Vital Signs Vital signs: Vital Signs Temperature 36.6 C 11/15/21 09:18 Pulse 101 H 11/15/21 09:18 Respiratory Rate 16 11/15/21 09:18 Blood Pressure 148/113 H 11/15/21 09:18 Pulse Oximetry 98 11/15/21 09:18 Temperature 36.6 C 11/15/21 09:18 Temperature Source Skin 11/15/21 09:18 Pulse 101 H 11/15/21 09:18 Respiratory Rate 16 11/15/21 09:18 Respiratory Effort 11/15/21 09:28 Blood Pressure 148/113 H 11/15/21 09:18 Pulse Oximetry 98 11/15/21 09:18 Oxygen Delivery Method Room Air 11/15/21 09:18 Oxygen Flow Rate 0 11/15/21 09:18 Pain Level 10 11/15/21 09:18 Comment 11/15/21 09:18 PAWSS Have you Been Recently Intoxicated or Drunk Within the Last 30 days?: No Have you Ever Experienced Previous Episodes of Alcohol Withdrawal?: No Have you ever Experienced Withdrawal Seizures?: No Have you ever Experienced Delirium Tremens(DT)s?: No Have you ever undergone Alcohol Rehabilitation Treatment (i.e, inpt ot outpatient treatment programs)?: No Have you ever Experienced Blackouts?: No Have you ever Combined Alcohol with other Downers within the last 90 days?: No Have you ever Combined Alcohol with any other Substance of Abuse during the last 90 days?: No Positive Blood Alcohol level on Presentation? [PCS.BAL]: No Evidence of Increased Autonomic Activity (i.e. HR>120, tremor, sweating, agitation, nausea)?: No Result: 0
[2021-11-15 11:02] VITALS: BP 135/97; PULSE 93; RESP 16; TEMP 36.8; O2SAT 100
== END 2021-11-15 11:01 | disposition home or self-care (01) ==
PROVIDERS: Emergency Provider Nurse Practitioner Family; PCP Physician Assistant
DX: F20.9 Schizophrenia, unspecified (principal); Z91.14 Patient's other noncompliance with medication regimen
CPT/HCPCS: 96372; 99284; 99283

== ENCOUNTER 2022-02-17 22:46 | Emergency (ER) | payer MEDICAID, SELFPAY ==
[2022-02-17 22:51] VITALS: BP 113/77; PULSE 93; RESP 16; TEMP 36.3; O2SAT 98
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
[2022-02-17 23:31] LABS: Abs Immature Grans 0.06 10^3/uL (0.0-0.06); Absolute Lymphocyte Count 1.92 10^3/uL (1.2-3.4); Absolute Monocyte Count 1.05 10^3/uL (0.1-0.8); Basophils % 0.3; Eosinophils % 0.9; HCT 43.9 % (40.0-50.0); HGB 14.7 g/dL (13.5-17.5); Immature Grans % 0.5; Lymphocytes % 16.4; MCH 28.9 pg (27.0-33.0); MCHC 33.5 % (32.0-36.0); MCV 86 fL (80-95); MPV 8.9 fL (8.0-11.0); Neutrophils % 72.9; Platelet Count 289 10^3/uL (130-400); RBC 5.08 10^6/uL (4.36-5.78); RDW 12.6 % (11.8-14.1); RDW-SD 39.8 fL; WBC 11.69 10^3/uL (4.4-10.8)
[2022-02-17 23:47] LABS: Absolute Basophil Count 0.04 10^3/uL (0.0-0.2); Absolute Eosinophil Count 0.11 10^3/uL (0.0-0.7); Absolute Neutrophil Count 8.52 10^3/uL (1.2-6.7)
[2022-02-17 23:49] LABS: *AMPHETAMINES SCREEN URINE Negative (Negative); *BARBITURATES SCREEN URINE Negative (Negative); *BENZODIAZEPINES SCREEN URINE Negative (Negative); Cannabinoids THC Positive (Negative); Cocaine Screen,Urine Negative (Negative); METHADONE URINE SCREEN Negative (Negative); OPIATES URINE SCREEN Negative (Negative)
[2022-02-17 23:50] LABS: Tricyclic Antidepressants Negative (Negative)
[2022-02-17 23:54] LABS: ALT 22 U/L (16-63); AST 18 U/L (15-37); Alkaline Phosphatase 62 U/L (46-116); Anion Gap 9.1 mmol/L (3-11); BUN 17 mg/dL (7-18); Bilirubin, Total 0.5 mg/dL (0.2-1.0); CO2 25.9 mmol/L (21.0-32.0); CREATININE 1.3 mg/dL (0.70-1.30); Calcium 9.1 mg/dL (8.5-10.1); Chloride 103 mmol/L (98-107); Estimated GFR 59.17 (mL/min/1.73m2); Glucose 155 mg/dL (74-106); Potassium 3.2 mmol/L (3.5-5.1); Sodium 138 mmol/L (136-145); TSH (W/Ref FT4) 1.11 uIU/mL (0.36-3.74); Total Protein 7.9 g/dL (6.4-8.2)
[2022-02-17 23:58] LABS: Salicylate 5.2 mg/dL (<2.8)
[2022-02-17 23:59] LABS: Acetaminophen < 2 ug/mL (10-30); ETHANOL BLOOD < 3.0 mg/dL (<10)
[2022-02-18] MEDS: Benztropine 1 MG TAB PO (00:27)
[2022-02-18] MEDS: HALOPERIDOL DECANOATE 100 MG/1 ML IM (00:27)
[2022-02-18 00:28] VITALS: BP 121/81; PULSE 103; RESP 20; O2SAT 98
== END 2022-02-18 00:28 | disposition home or self-care (01) ==
PROVIDERS: Emergency Provider Student in an Organized Health Care Education/Training Program; PCP Physician Assistant
DX: F20.9 Schizophrenia, unspecified (principal)
CPT/HCPCS: 36415; 80053; 80307; 96374; 99284; 80320; 80329; 84443; 85025; 99283

== ENCOUNTER 2022-03-28 23:40 | Emergency (ER) | payer MEDICAID, SELFPAY ==
[2022-03-28 23:46] VITALS: BP 127/93; PULSE 117; RESP 18; TEMP 37.2; O2SAT 96
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
--- NOTE | 2022-03-29 00:45 | RT.EKG_ITS ---
APPROVED REPORT Exam: Resting ECG Reason for Exam: chest pain Patient Location: E HR:84 bpm ECG Measurements Heart Rate 84 AXIS NC 130 P 45 QRSd 91 QRS 32 QT 327 T 37 QTc 385 Conclusion Sinus rhythm...normal P axis, V-rate 60- 99 ST elev, probable normal early repol pattern...ST elevation, age<55. Sinus. Early repolarization. No STEMI. I have reviewed and interpreted ECG and agree with software generated interpretation.
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
[2022-03-29] MEDS: clonazePAM 1 MG TAB 2 MG PO (06:23)
[2022-03-29] MEDS: Benztropine 1 MG TAB PO (06:25)
[2022-03-29 08:49] LABS: Abs Immature Grans 0.01 10^3/uL (0.0-0.06); Absolute Basophil Count 0.03 10^3/uL (0.0-0.2); Absolute Eosinophil Count 0.23 10^3/uL (0.0-0.7); Absolute Lymphocyte Count 1.24 10^3/uL (1.2-3.4); Absolute Monocyte Count 0.67 10^3/uL (0.1-0.8); Absolute Neutrophil Count 5.67 10^3/uL (1.2-6.7); Basophils % 0.4; Eosinophils % 2.9; HCT 45.7 % (40.0-50.0); HGB 15.5 g/dL (13.5-17.5); Immature Grans % 0.1; Lymphocytes % 15.8; MCH 29.2 pg (27.0-33.0); MCHC 33.9 % (32.0-36.0); MCV 86 fL (80-95); MPV 9.2 fL (8.0-11.0); Monocytes % 8.5; Neutrophils % 72.3; Platelet Count 239 10^3/uL (130-400); RDW 13.5 % (11.8-14.1); RDW-SD 42.6 fL; WBC 7.85 10^3/uL (4.4-10.8)
[2022-03-29 09:13] LABS: ALT 25 U/L (16-63); AST 21 U/L (15-37); Albumin 3.7 g/dL (3.4-5.0); Alkaline Phosphatase 60 U/L (46-116); Anion Gap 5.7 mmol/L (3-11); BUN 12 mg/dL (7-18); Bilirubin, Total 0.7 mg/dL (0.2-1.0); CO2 31.3 mmol/L (21.0-32.0); CREATININE 1.1 mg/dL (0.70-1.30); Chloride 106 mmol/L (98-107); ETHANOL BLOOD < 3.0 mg/dL (<10); Glucose 99 mg/dL (74-106); Magnesium 1.8 mg/dL (1.8-2.4); Potassium 3.6 mmol/L (3.5-5.1); Sodium 143 mmol/L (136-145); Total Protein 7.3 g/dL (6.4-8.2); Troponin I < 50 ng/L (<or=60)
[2022-03-29 09:31] LABS: Source Nasal/Nares
[2022-03-29 10:05] LABS: COVID-19 PCR Negative (Negative)
[2022-03-29 10:05] LABS: *AMPHETAMINES SCREEN URINE Negative (Negative); *BARBITURATES SCREEN URINE Negative (Negative); *BENZODIAZEPINES SCREEN URINE Negative (Negative); Cannabinoids THC Positive (Negative); Cocaine Screen,Urine Negative (Negative); METHADONE URINE SCREEN Negative (Negative); OPIATES URINE SCREEN Negative (Negative); Tricyclic Antidepressants Negative (Negative)
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
--- NOTE | 2022-03-29 15:50 | NUR.NOTE ---
Nursing Note: Patient's pink scarf was given to [facility] Mauricio Be. Shaunna Law and Sia Mccarthy witnessed this.
== END 2022-03-29 13:03 ==
PROVIDERS: Physician Assistant; Emergency Provider Emergency Medicine; PCP Physician Assistant
DX: F20.0 Paranoid schizophrenia (principal); S00.81XA Abrasion of other part of head, initial encounter; F17.210 Nicotine dependence, cigarettes, uncomplicated; Z20.822 Contact with and (suspected) exposure to COVID-19; X58.XXXA Exposure to other specified factors, initial encounter
CPT/HCPCS: 36415; 80053; 80307; 87635; 93005; 96372; 99284; 80320; 83735; 84484; 85025; 93010

== ENCOUNTER 2022-03-29 17:31 | Emergency (ER) | payer MEDICAID, SELFPAY ==
[2022-03-29 17:36] VITALS: BP 134/88; PULSE 111; RESP 18; TEMP 37; O2SAT 96
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
[2022-03-29] MEDS: Haloperidol 5 MG/ML VIAL IM (18:24)
[2022-03-29] MEDS: diphenhydrAMINE 50 MG/ML VIAL 25 MG IM (18:24)
[2022-03-29] MEDS: LORazepam 20 MG/10 ML VIAL IM (18:25)
== END 2022-03-29 19:02 ==
PROVIDERS: Emergency Provider Registered Nurse Emergency; PCP Physician Assistant
DX: F20.9 Schizophrenia, unspecified (principal); F17.210 Nicotine dependence, cigarettes, uncomplicated
CPT/HCPCS: 96372; 99284; 99283; J1200; J1630; J3490

== ENCOUNTER 2022-03-29 19:15 | Emergency (ER) | payer MEDICAID, SELFPAY ==
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
--- NOTE | 2022-03-29 19:30 | RT.EKG_ITS ---
APPROVED REPORT Exam: Resting ECG Reason for Exam: R/O Prolonged QT Patient Location: E HR:86 bpm ECG Measurements Heart Rate 86 AXIS OK 129 P 73 QRSd 88 QRS 46 QT 332 T 33 QTc 398 Conclusion Sinus rhythm...normal P axis, V-rate 60- 99 ST elev, probable normal early repol pattern...ST elevation, age<55 sinus rhythm, normal axis, normal intervals, non ischemic
[2022-03-30] MEDS: diphenhydrAMINE 50 MG/ML VIAL IM (08:17)
[2022-03-30] MEDS: Haloperidol 5 MG/ML VIAL 4 MG IM (08:17)
[2022-03-30] MEDS: LORazepam 20 MG/10 ML VIAL IM (08:18)
--- NOTE | 2022-03-30 08:22 | NUR.NOTE ---
Pt. has been up pacing around department, states that he is going to leave. Has attempted to leave, unable to open doors. Teresa montes was called, Security in department observing patient. Patient has been holding his right chest and states that he has had pain, refused assistance and treatment. Refused paper scrubs, was given breakfast and he threw the container against the wall. Patient has calmed, agreed to take medications. Nursing Note:
--- NOTE | 2022-03-30 08:50 | NUR.NOTE ---
Pt was very agitated and acting out slamming doors and showing violent behavior, pt given medications to calm, spoke with provider who advised to hold off on EKG until a later time.BRANDEN
--- NOTE | 2022-03-30 10:13 | NUR.NOTE ---
Per pharmacy: Pt.'s weekly longacting Haldol was dispensed from the pharmacy, drawn up into syringe by nightshift but patient refused. Fuel Agent wasted 100 mg/ml into medicine waste dispenser in the witness of Foster Patel, NRP Witnessed waste of remainer of Haldol with Shabbir PETERSEN, Foster Patel NRPNursing Note:
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
--- NOTE | 2022-03-30 13:31 | NUR.NOTE ---
Nursing Note: pt refused lunch and drink
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
--- NOTE | 2022-03-30 14:33 | NUR.NOTE ---
Pt. returned via [facility] Police and placed back in bed. Placed in 2 point restraints.Nursing Note:
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
[2022-03-30] MEDS: LORazepam 20 MG/10 ML VIAL (18:33)
[2022-03-30] MEDS: Haloperidol 5 MG/ML VIAL (18:33)
[2022-03-30] MEDS: diphenhydrAMINE 50 MG/ML VIAL (18:33)
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
[2022-03-31] MEDS: LORazepam 20 MG/10 ML VIAL IM (00:25)
[2022-03-31] MEDS: diphenhydrAMINE 50 MG/ML VIAL IM (00:25)
[2022-03-31] MEDS: OLANZapine 10 MG VIAL IM (00:26)
--- NOTE | 2022-03-31 08:08 | NUR.NOTE ---
Nursing Note: Patient's phone was charged. Accessed the contacts and got the number for Paulette [phone]. Araceli Teixeira witnessed this and putting the phone back in the patient's belongings bag.
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
[2022-03-31] MEDS: Ibuprofen 400 MG TAB PO (11:03)
[2022-03-31] MEDS: clonazePAM 1 MG TAB PO (11:18)
[2022-03-31] MEDS: clonazePAM 1 MG TAB (11:18)
--- NOTE | 2022-03-31 13:30 | NUR.NOTE ---
Nursing Note: [facility] appt scheduled for Apr 01 @ 3pm
[2022-03-31 14:05] VITALS: BP 113/76; PULSE 116; TEMP 36.5; O2SAT 99
--- NOTE | 2022-03-31 16:53 | PDOC.MHCN ---
Date of service: 03/31/22 Time of Service: 14:05
[2022-03-31 19:19] VITALS: PULSE 114; O2SAT 100
[2022-03-31] MEDS: Haloperidol 5 MG TAB PO (19:48)
[2022-03-31] MEDS: Benztropine 1 MG TAB PO (19:55)
[2022-03-31] MEDS: clonazePAM 0.5 MG TAB PO (22:50)
--- NOTE | 2022-04-01 01:43 | NUR.NOTE ---
pt showered and applied lotion to feet all linens and room cleaned
--- NOTE | 2022-04-01 06:00 | RT.EKG_ITS ---
APPROVED REPORT Exam: Resting ECG Reason for Exam: chest pain Patient Location: E HR:95 bpm ECG Measurements Heart Rate 95 AXIS WY 115 P 43 QRSd 89 QRS 45 QT 328 T 25 QTc 413 Conclusion Sinus rhythm...normal P axis, V-rate 60- 99 Low voltage, extremity leads...all extremity leads <0.5mV ST elev, probable normal early repol pattern...ST elevation, age<55 Physician: no stemi, repol present, unchanged from ekg both yesterday and in 2013
[2022-04-01 06:14] VITALS: BP 103/76; PULSE 116; RESP 14; O2SAT 98
--- NOTE | 2022-04-01 06:15 | NUR.NOTE ---
Nursing Note: Patient complaint of right sided chest discomfort that increases with breathing. Provider notified. Vitals and EKG measured. Orders for medication received.
[2022-04-01] MEDS: Acetaminophen 500 MG TAB 1000 MG PO (06:41)
[2022-04-01] MEDS: Famotidine 20 MG TAB PO (09:18)
[2022-04-01] MEDS: Haloperidol 5 MG TAB PO ×2 (09:18→20:45)
[2022-04-01] MEDS: Ibuprofen 600 MG TAB PO (09:18)
[2022-04-01] MEDS: Benztropine 1 MG TAB PO ×2 (09:18→21:04)
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
--- NOTE | 2022-04-01 16:53 | PDOC.MHPN2 ---
Date of service: 04/01/22 Time of Service: 16:53 Mental Health Progress Note Progress Note Progress Note: Presenting Issue: Client presented to [facility] ED on 03/30/22 via a MH warrant. Client was seen today for check-in assessment. Precipitating Factors Disposition * Behavior: Client is cooperative with assessment and is beginning to show fair insight and judgment. *Eye Contact:Client gives fair eye contact. *Mood: Clients mood appeared to be anxious. *Affect: irritable *Appetite:poor *Sleep(troubel falling/staying asleep): client states that all he does is sleep. Plan(please elaborate and include that physician is consulted with plan and/or placement): This automobile and property underwriter had conversation with Dr. Hammonds after client had a conversation Dr. Rose who is undecided if client still meets criteria for an involuntary hold. This automobile and property underwriter stated at this time that client is beginning to show better insight and judgment I do not believe that client can be walked off from his EE at this time. This case will be discussed with ES team in the morning and client will be re-assessed 2x daily until placement is secured. Clinician's Name , Title, and Signature Brooklyn Hager [facility] Emergency Clinician Make sure that you are photocopying and submitting this to [facility] records Dept. to be scanned into chart.
[2022-04-01] MEDS: clonazePAM 1 MG TAB PO ×2 (22:15→22:20)
[2022-04-02] MEDS: Haloperidol 5 MG TAB 10 MG PO (09:17)
[2022-04-02] MEDS: Benztropine 1 MG TAB PO (09:22)
--- NOTE | 2022-04-02 09:44 | PDOC.CMSAFED ---
- If Service Date Differs Date of service: 04/02/22 Time of Service: 09:44 Care Management Safety Plan Status: Involuntary - Reason for Wait Reason for Wait: Inpatient Admission Reason for Wait: Inpatient Admission Frantz has continued to stabilize over the last few days, he has become much calmer and more cooperative. He continues to advocate for discharge to support him in returning to work, and being able to pay his rent, retain his housing and his employment. A safety huddle was held at [facility] Safety plan has been established to meet the needs of the patient, and consideration of the care team, to adhere to patient goals, identify restrictions based on behavioral status, address nutrition, and determine allowed personal belongings, tools for hygiene and personal care. Determine level of activity including ambulation, level of supervision, visitors, and determine privileges based on behaviors and level of engagement by pt. INVOLUNTARY SAFETY PLAN: 1. Will remain on SI/HI precautions. In Paper Clothes 2. Will remain in room under direct supervision of one-on-one staff at all times provided by [employer]; ADOLFO, ORTHOTIC AIDE assembler fluorescent lights. 3. May have paper cups, plates, finger foods as well as a cardboard spoon 4. Follow [facility] Management of the Admitted Behavioral Health Patient policy. 5. Comfort bath system only, shower permitted with escort at RN discretion. 6. No personal belongings. 7. Visitors: Girlfrienjulia Caldwell and melina Triana may visit at nursing discretion. 8. Activities: soft cart items, at RN discretion 9. Bathroom privileges with supervision in the Emergency Department. 10. Phone: limited to cordless [facility] phone, at this time per RN discretion. 11. Due to INVOLUNTARY status, patient is being held at [facility] by the Department of Mental Health ([facility]). Staff will provide de-escalation support (CPI) as needed. If patient wishes to leave [facility], staff will contact [facility] Crisis Screener ([phone]) and On-Call Manager Architectural ([phone]) as soon as possible. In the event of elopement, notify [place] [employer] Police ([phone]). Patient is currently involuntarily at [facility]. [facility] Frontline Principal Java Developer will continue seeking placement. Please contact the Circular Distributor Manager Architectural ([phone]) for any needed changes to Safety Plan. Safety plan has been provided to interdepartmental care team. Patient will be transported by [facility] at time of discharge.
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
[2022-04-02] MEDS: HALOPERIDOL DECANOATE 100 MG/1 ML IM (11:35)
[2022-04-02 11:39] VITALS: BP 117/74; PULSE 112; RESP 18; TEMP 36.6; O2SAT 98
[2022-04-02] MEDS: Haloperidol 5 MG TAB 25 MG PO (12:11)
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
--- NOTE | 2022-04-02 14:09 | CMPROGNOTE_ITS ---
- If Service Date Differs Date of service: 04/02/22 Time of Service: 14:09 Care Management Progress Note CM observed interaction with [facility] Loco and Dr. Martinez in which MD advocated for Frantz to be permitted to discharge per patient's wishes. Frantz has consistently verbalized since 03/31/22 that he needed to return to work to maintain his livelihood; housing and employment. JENN discussed patient's concerns with Loco on Tuesday and observed Loco tell Frantz that he was emailing the [facility] provider now to share patient statements re: medication concerns and needs. Frantz has followed all directives appropriately and was advised by Loco on Tuesday, that will continued stabilization, [facility] would likely consider a walk off on Tuesday. Loco stated he was unable to make this determination, but would relay all pertinent information to providers as appropriate. Therefore, ED MD and patient were under guidance from [facility] Loco that Frantz would likely discharge today. Upon arrival, Loco stated this may not be the case as Frantz had previously left the ED and escalated in the community. He again stated that he would review medication information with [facility] provider and discuss discharge planning with his supervisor print line. CM advised MD that same discussion with Loco was had on Tuesday at which point Loco advised he was emailing [facility] providers. Dr. Martinez stated he would outreach to Dr. Velasquez directly. Frantz was also evaluated by secondary psychiatrist, Dr. Bangura; please refer to his note for further information. Frantz will follow up with Dr. Velasquez this afternoon, any additional discharge planning needs, including safety planning is per the responsibility of designated agency; [facility].
--- NOTE | 2022-04-03 19:03 | MHPN_ITS ---
Date of service: 04/02/22 Time of Service: 19:04 Mental Health Progress Note Progress Note Progress Note: Presenting Issue:Client presented to the emergency room on 03/29/22 after a mental health warrant was executed. Client was released earlier in the day today after no longer meeting criteria for an involuntary hold. Precipitating Factors Disposition * Behavior: *Eye Contact: *Mood: *Affect: *Appetite: *Sleep(troubel falling/staying asleep): Plan(please elaborate and include that physician is consulted with plan and/or placement): This scientific technical writer spoke with attending ED physician Dr. Martinez who shared concerns that there was no safety plan in place. This scientific technical writer told physician that check-in phone calls would be conducted throughout the weekend initiated by [facility]. Clinician's Name , Title, and Signature: Brooklyn Hager, [facility] Emergency Clinician Make sure that you are photocopying and submitting this to [facility] records Dept. to be scanned into chart.
--- NOTE | 2022-04-03 19:03 | PDOC.MHPN2 ---
Date of service: 04/02/22 Time of Service: 19:04 Mental Health Progress Note Progress Note Progress Note: Presenting Issue:Client presented to the emergency room on 03/29/22 after a mental health warrant was executed. Client was released earlier in the day today after no longer meeting criteria for an involuntary hold. Precipitating Factors Disposition * Behavior: *Eye Contact: *Mood: *Affect: *Appetite: *Sleep(troubel falling/staying asleep): Plan(please elaborate and include that physician is consulted with plan and/or placement): This senior medical writer spoke with attending ED physician Dr. Martinez who shared concerns that there was no safety plan in place. This senior medical writer told physician that check-in phone calls would be conducted throughout the weekend initiated by [facility]. Clinician's Name , Title, and Signature: Brooklyn Hager, [facility] Emergency Clinician Make sure that you are photocopying and submitting this to [facility] records Dept. to be scanned into chart.
== END 2022-04-02 12:11 | disposition home or self-care (01) ==
PROVIDERS: Emergency Provider Student in an Organized Health Care Education/Training Program
DX: F20.9 Schizophrenia, unspecified (principal); S00.81XA Abrasion of other part of head, initial encounter; F17.210 Nicotine dependence, cigarettes, uncomplicated; X58.XXXA Exposure to other specified factors, initial encounter
CPT/HCPCS: 93005; 96372; 99284; 99285; Q3014; 93010; 99283; J1200; J1630; J3490